=== PATIENT | male | born 1995 | race Caucasian/White ===

== ENCOUNTER 2019-10-11 15:24 | Emergency (ER) | payer OTHER, SELFPAY ==
[2019-10-11 15:30] VITALS: BP 124/70; PULSE 59; RESP 19; TEMP 36.8; O2SAT 98; BMI 22.4
--- NOTE | 2019-10-11 16:18 | ED_ITS ---
HPI - Extremity Injury (Upper) <Mirian Richardson PA-C - Last Filed: 10/11/19 23:20> General Chief Complaint: Extremity Injury, Upper Stated Complaint: left pinky finger blood under nail Time Seen by Provider: 10/11/19 15:30 Source: patient Mode of arrival: Ambulatory Limitations: no limitations History of Present Illness HPI narrative: This is a previously healthy 24-year-old who got his left pinky finger caught in a gate on , (4 days ago) it was smashed in place and he was unable to pull it out right away, he had some mild bleeding at the base of the nail immediately after it happened, he developed bruising under his nail and the entire area became a blood blister under his nail over the next couple of days and became more painful. He presents to the emergency department today hoping we can ?drain it? to relieve the pressure and pain. He denies heat, numbness or tingling, erythema, significant swelling, he states this is an isolated injury and has no other complaints today. Differential diagnoses included crush injury, subungual hematoma, localized infection, tuft fracture, vascular damage, nerve damage. There is no evidence of bone involvement on x-ray, I have a low suspicion for a localized infection, he was provided with a digital block and trephinated matias as above, with relief of symptoms and aspiration of liquid blood from beneath his nail. He is provided with emergency return precautions, advised regarding PCP follow-up, and all questions were answered. Related Data Allergies Allergy/AdvReac Type Severity Reaction Status Date / Time No Known Drug Allergies Allergy Verified 10/11/19 16:53 Patient History <Mirian Richardson PA-C - Last Filed: 10/11/19 23:20> Social History Smoking Status: Current some day smoker Smoking Status: Current some day smoker tobacco type: cigars alcohol intake frequency: a few times a month Substance Use Type: does not use Exam <Mirian Richardson PA-C - Last Filed: 10/11/19 23:20> Initial Vital Signs Initial Vital Signs: Vital Signs Temperature 98.2 F 10/11/19 15:30 Pulse Rate 59 L 10/11/19 15:30 Respiratory Rate 19 10/11/19 15:30 Blood Pressure 124/70 10/11/19 15:30 Pulse Oximetry 98 10/11/19 15:30 <Ravin Richards MD - Last Filed: 10/15/19 21:33> Initial Vital Signs Initial Vital Signs: Vital Signs Temperature 98.2 F 10/11/19 15:30 Pulse Rate 59 L 10/11/19 15:30 Respiratory Rate 19 10/11/19 15:30 Blood Pressure 124/70 10/11/19 15:30 Pulse Oximetry 98 10/11/19 15:30 Procedures <Mirian Richardson PA-C - Last Filed: 10/11/19 23:20> Nail Trephination Time out: Yes Location (finger): left and short Sterile prep: other (alcohol prep) Method of drainage: needle Procedure successful: Yes Patient tolerated procedure: well Complications: bleeding Course <Mirian Richardson PA-C - Last Filed: 10/11/19 23:20> Orders Ordered: Discontinued Medications Ibuprofen (Advil) 800 mg PO NOW ONE Stop: 10/11/19 16:28 Last Admin: 10/11/19 16:53 Dose: 800 mg Documented by: BRANDIE Lidocaine/Sodium Bicarbonate (Buffered Lidocaine 10 Ml Syr) 10 ml INJ NOW ONE Stop: 10/11/19 17:15 Last Admin: 10/11/19 17:46 Dose: 10 ml Documented by: BRANDIE Vital Signs Vital signs: Vital Signs - 8 hr 10/11/19 15:30 10/11/19 18:03 Temperature 98.2 F Pulse Rate 59 L 54 L Respiratory Rate 19 15 Blood Pressure 124/70 Blood Pressure [Right Arm] 128/62 Pulse Oximetry 98 100 <Ravin Richards MD - Last Filed: 10/15/19 21:33> Orders Ordered: Discontinued Medications Ibuprofen (Advil) 800 mg PO NOW ONE Stop: 10/11/19 16:28 Last Admin: 10/11/19 16:53 Dose: 800 mg Documented by: BRANDIE Lidocaine/Sodium Bicarbonate (Buffered Lidocaine 10 Ml Syr) 10 ml INJ NOW ONE Stop: 10/11/19 17:15 Last Admin: 10/11/19 17:46 Dose: 10 ml Documented by: BRANDIE Vital Signs Vital signs: Vital Signs - 8 hr 10/11/19 15:30 10/11/19 18:03 Temperature 98.2 F Pulse Rate 59 L 54 L Respiratory Rate 19 15 Blood Pressure 124/70 Blood Pressure [Right Arm] 128/62 Pulse Oximetry 98 100 MDM - Extremity Injury (Upper) <Mirian Richardson PA-C - Last Filed: 10/11/19 23:20> Imaging Data Extremity x-ray #1: Attestation: I personally reviewed and interpreted this imaging study as follows: Radiologist's Impression: [address] [address] XRay Report Signed Patient: Roberto Carrillo#: [id number] : 1995Acct:[id number] Age/Sex: MDate of Service: 10/11/19 Loc: ED Accession Number: [id number] Procedure: XR finger LT min 2V Ordering Provider: Mirian Richardson P.A-C PROCEDURE: XR FINGER LT MIN 2V INDICATIONS: smashed 5th digit in gate 5 days ago, worsening pain TECHNIQUE: AP hand, 2 views of the left finger(s) acquired. COMPARISON: None. FINDINGS: Bones: No fractures or dislocations. No suspicious bony lesions. Soft tissues: No suspicious soft tissue calcifications. Distal left little finger soft tissue swelling IMPRESSION: No fracture. If the patient's symptoms do not improve recommend followup radiographs in 10 days to assess for healing sclerosis/occult injury. Dictated by: Dong Hansen M.D. on 10/11/2019 at 17:09 Approved by: Dong Hansen M.D. on 10/11/2019 at 17:12 Discharge Plan Departure Patient Disposition: Home Clinical Impression: Subungual hematoma of finger of left hand Qualifiers: Encounter type: initial encounter Qualified Code(s): S60.10XA - Contusion of unspecified finger with damage to nail, initial encounter Crushing injury of left little finger Qualifiers: Encounter type: initial encounter Qualified Code(s): S67.197A - Crushing injury of left little finger, initial encounter Discharge Date/Time: 10/11/19 18:08 Instructions: DI for Crush Injury, DI for Subungual Hematoma Activity Restrictions/Additional Instructions: Thank you for letting us be part of the care in the emergency department today. There is no evidence of an emergent or life threatening illness at this time, but follow up with your doctor in 1-2 days is recommended nonetheless to continue to rule out serious underlying causes of your symptoms. Please call the office for an appointment. Please return to the Emergency Department for any worsening or persistent symptoms. Please take medications as directed. Your x- rays today did not show evidence of a fracture, we performed a procedure to remove the blood from under your finger nail, it is still possible that you may lose the nail, however it is also possible that it may grow out slowly. Please monitor for any signs of infection including heat, increased redness, increased swelling, increased pain in the end of your finger and seek medical care if you have these or any other symptoms of concern to you. Now that there is a hole in your nail the pressure should be greatly relieved, and hopefully will not build up again, it is more likely that your blood will ultimately clot and you will hopefully not have the increasing pressure. I recommend minimizing the use of this finger, for the next week or so or in till your pain improves. You can alternate Tylenol and ibuprofen for pain as needed. I have included a referral to [facility] in case you needed a primary care provider they can help you get established with one. I do recommend you follow-up for this in the next 3-7 days. Referrals: [facility] [Outside]
[2019-10-11] MEDS: IBUPROFEN 400 MG TABLET 800 MG PO (16:53)
[2019-10-11] MEDS: LIDO 1%/SOD BICARB 8.4% (10ML) 10 ML SYRINGE INJ (17:46)
[2019-10-11 18:03] VITALS: BP 128/62; PULSE 54; RESP 15; O2SAT 100
== END 2019-10-11 18:08 | disposition home or self-care (01) ==
PROVIDERS: Emergency Provider Student in an Organized Health Care Education/Training Program
DX: S60.10XA Contusion of unspecified finger with damage to nail, initial encounter (principal); S67.197A Crushing injury of left little finger, initial encounter; W23.0XXA Caught, crushed, jammed, or pinched between moving objects, initial encounter
CPT/HCPCS: 11740; 73140; 99283